=== PATIENT | male | born 1950 | race Caucasian/White ===

== ENCOUNTER → 2019-06-28 10:14 | Outpatient (BNVA) | payer MEDICARE, SELFPAY | PROVIDERS: Family Provider Family Medicine; PCP Family Medicine; Visit Provider Internal Medicine Rheumatology | DX: L40.50 Arthropathic psoriasis, unspecified (principal); L40.0 Psoriasis vulgaris; Z79.899 Other long term (current) drug therapy; Z79.52 Long term (current) use of systemic steroids | CPT/HCPCS: 99214 ==

== ENCOUNTER → 2019-08-13 13:04 | Outpatient (BNVA) | payer MEDICARE, SELFPAY | PROVIDERS: Family Provider Family Medicine; PCP Family Medicine; Visit Provider Internal Medicine Rheumatology | DX: L40.50 Arthropathic psoriasis, unspecified (principal); Z79.899 Other long term (current) drug therapy | CPT/HCPCS: 36415; 80076; 82565; 85025; 85651; 86140 ==

== ENCOUNTER → 2019-08-13 13:16 | Outpatient (BNVA) | payer MEDICARE, SELFPAY | PROVIDERS: Family Provider Family Medicine; PCP Family Medicine; Visit Provider Internal Medicine Rheumatology | DX: L40.50 Arthropathic psoriasis, unspecified (principal); Z79.899 Other long term (current) drug therapy; D89.89 Other specified disorders involving the immune mechanism, not elsewhere classified | CPT/HCPCS: 85025 ==

== ENCOUNTER → 2019-10-17 14:12 | Outpatient (BNVA) | payer MEDICARE, SELFPAY | PROVIDERS: Family Provider Family Medicine; PCP Family Medicine; Visit Provider Internal Medicine Rheumatology | DX: L40.59 Other psoriatic arthropathy (principal); L40.0 Psoriasis vulgaris; Z79.899 Other long term (current) drug therapy; M05.9 Rheumatoid arthritis with rheumatoid factor, unspecified; Z98.890 Other specified postprocedural states; Z79.52 Long term (current) use of systemic steroids | CPT/HCPCS: 20610; 80500; 87070; 87075; 87205; 89050; 99214 ==

== ENCOUNTER 2019-10-18 08:52 | Outpatient (CLI) | payer MEDICARE, SELFPAY ==
--- NOTE | 2019-10-18 09:18 | XR_ITS ---
WS: [id number] HAND LEFT TECHNIQUE: 3 views of the left hand CLINICAL INFORMATION: Polyarticular psoriatic arthritis COMPARISON: None. FINDINGS: Osteopenia. Advanced degenerative arthritis involving the radiocarpal joint and proximal and distal c arpal row. Erosive changes involving the carpal bones. Sclerosis with flattening involving the scapho id. Normal metacarpal heads. Joint space narrowing second third and fourth DIP joints with a few claudette articular erosions and hypertrophic spurring. IMPRESSION: 1. Advanced degenerative arthritis involving the radiocarpal joint and carpal bones with erosive hiram nges. Sclerosis with flattening involving the scaphoid. 2. Joint space narrowing involving the second third and fourth DIP joints with small periarticular e rosions.
--- NOTE | 2019-10-18 09:18 | XR_ITS ---
WS: [id number] FOOT LEFT TECHNIQUE: 3 views of the left foot CLINICAL INFORMATION: Polyarticular psoriatic arthritis COMPARISON: None. FINDINGS: Mild osteopenia. Normal anatomic alignment. Mild DIP joint narrowing. No evidence of acute fracture or dislocation. Normal tarsal metatarsal alignment. Normal calcaneus. N ormal visualized talar dome. No significant erosive changes. XR/XR foot LT min 3V* [id number] IMPRESSION: No significant erosive changes.
--- NOTE | 2019-10-18 09:18 | XR_ITS ---
WS: [id number] FOOT RIGHT TECHNIQUE: 3 views of the right foot CLINICAL INFORMATION: Polyarticular psoriatic arthritis: COMPARISON: None. FINDINGS: Normal anatomic alignment. No acute fractures. DIP joint narrowing. No significant erosive changes.Normal tarsal metatarsal alignment. Normal calcan eus. Normal visualized talar dome. XR/XR foot RT min 3V* [id number] IMPRESSION: No significant erosive changes.
--- NOTE | 2019-10-18 09:18 | XR_ITS ---
WS: [id number] HAND RIGHT TECHNIQUE: 3 views of the right hand CLINICAL INFORMATION: Polyarticular psoriatic arthritis COMPARISON: None. FINDINGS: Advanced degenerative narrowing involving the radiocarpal joint with sclerosis involving the proximal pole of the scaphoid similar to the left wrist. Nonerosive changes involving the proximal and distal carpal row. Joint space narrowing worse involving the third fourth and fifth DIP joints. A few tiny periarticular erosions. Joint space narrowing involving the second third MCP joints. Small periarticu lar erosions second and third metatarsal heads. XR/XR hand RT min 3V* [id number] IMPRESSION: 1. Advanced degenerative narrowing involving the radiocarpal joint with sclero sis in the proximal pole scaphoid. 2. Erosive changes involving the proximal and distal carpal row. 3. Joint space narrowing with a few periarticular erosions worse involving the second and third MCP joints and third fourth and fifth DIP joints.
== END 2019-10-18 08:53 | disposition home or self-care (01) ==
PROVIDERS: Family Provider Family Medicine; PCP Family Medicine; Visit Provider Internal Medicine Rheumatology
DX: L40.59 Other psoriatic arthropathy (principal); M19.042 Primary osteoarthritis, left hand; M19.041 Primary osteoarthritis, right hand
CPT/HCPCS: 73130; 73630

== ENCOUNTER → 2019-10-21 09:21 | Outpatient (BNVA) | payer MEDICARE, SELFPAY | PROVIDERS: Family Provider Family Medicine; PCP Family Medicine; Visit Provider Internal Medicine Rheumatology | DX: Z79.899 Other long term (current) drug therapy (principal) | CPT/HCPCS: 36415; 80076; 82565; 84550; 85025; 85651; 86140; 86431 ==

== ENCOUNTER 2019-11-04 11:18 | Outpatient (CLI) | payer MEDICARE, SELFPAY ==
--- NOTE | 2019-11-04 11:28 | XR_ITS ---
WS: [id number] LEFT KNEE: 3 VIEW(S) TECHNIQUE: AP, oblique(s) and lateral. HISTORY: inflammatory arthritis COMPARISON: None available. Prior LEFT knee arthroplasty. No fractures or dislocation. No lucency around the hardware. No joint space narrowing or osteophytes. No joint effusion. No soft tissue abnormality. XR/XR knee LT 3V* [id number] IMPRESSION: Prior LEFT knee arthroplasty with no complications.
--- NOTE | 2019-11-04 11:28 | XR_ITS ---
WS: [id number] RIGHT KNEE: 3 VIEW(S) TECHNIQUE: AP, oblique(s) and lateral. HISTORY: inflammatory arthritis COMPARISON: None available. No fracture or dislocation. Mild tricompartment osteoarthritis. Small osteophytes along the joint lines. No joint effusion. No soft tissue abnormality. XR/XR knee RT 3V* [id number] IMPRESSION: Mild tricompartment osteoarthritis.
== END 2019-11-04 11:19 | disposition home or self-care (01) ==
LOC: RADWPI 11:25
PROVIDERS: Family Provider Family Medicine; PCP Family Medicine; Visit Provider Internal Medicine Rheumatology
DX: M17.11 Unilateral primary osteoarthritis, right knee; Z96.652 Presence of left artificial knee joint
CPT/HCPCS: 73562

== ENCOUNTER 2019-12-05 13:30 | Outpatient (CLI) | payer MEDICARE, SELFPAY ==
--- NOTE | 2019-12-05 13:42 | MR_ITS ---
WS: [id number] MRI right knee with and without contrast. HISTORY: Inflammatory arthritis. Multiplanar, multisequence imaging is performed of the RIGHT knee. COMPARISON: 11/04/2019 radiographs. Moderate-sized joint effusion. There is mild enhancement involving the synovium of the knee. There is a well-circumscribed 15 mm calcific or osseous density in the anterior knee joint also seen on the r adiographs. Small amount of marrow edema with enhancement in the lateral tibial plateau. Moderate-sized Salazar's cyst. Pritchett of the Salazar's cyst also enhance. ACL and PCL are intact. Medial collateral ligament is normal. The lateral posterior corner structures are being displaced from the joint line by an extruded disc and osteophytes. Partially torn popliteu s tendon. There is additional marrow edema in the lateral tibial plateau. Abnormal signal in the posterior horn of the lateral meniscus extends to the superior and inferior ar ticular surfaces. There is an additional horizontal tear in the posterior horn medial meniscus. Dista l quadriceps tendon and patellar tendons are negative. Mild narrowing of the medial and lateral compartments of the knee. Loss of cartilage most significant laterally. MR/MR knee RT wo/w con [id number] IMPRESSION: 1. Moderate joint effusion with enhancing synovium. May be inflammatory or pos tinfectious. 2. Moderate-sized Salazar's cyst with enhancing pritchett. Infectious or inflammator y. 3. Loose body measuring 15 mm in the anterior knee joint. 4. Complex tear posterior horn lateral meniscus and horizontal tear posterior horn medial meniscus. 5. Partially torn popliteus tendon. 6. Marrow edema lateral tibial plateau with moderate medial and lateral compar tment internal derangement with loss of cartilage.
== END 2019-12-05 13:31 | disposition home or self-care (01) ==
LOC: RADWPI 13:33
PROVIDERS: Family Provider Family Medicine; PCP Family Medicine; Visit Provider Internal Medicine Rheumatology
DX: M25.461 Effusion, right knee (principal); M71.21 Synovial cyst of popliteal space [Baker], right knee; S83.206A Unspecified tear of unspecified meniscus, current injury, right knee, initial encounter; S86.811A Strain of other muscle(s) and tendon(s) at lower leg level, right leg, initial encounter; X58.XXXA Exposure to other specified factors, initial encounter
CPT/HCPCS: 73723; A9579

== ENCOUNTER → 2019-12-17 15:43 | Outpatient (BNVA) | payer MEDICARE, SELFPAY | PROVIDERS: Family Provider Family Medicine; PCP Family Medicine; Referring Provider Internal Medicine Rheumatology; Visit Provider Orthopaedic Surgery | DX: M17.11 Unilateral primary osteoarthritis, right knee (principal) | CPT/HCPCS: 73560 ==

== ENCOUNTER → 2020-01-14 08:29 | Outpatient (BNVA) | payer MEDICARE, SELFPAY | PROVIDERS: Family Provider Family Medicine; PCP Family Medicine; Visit Provider Internal Medicine Rheumatology | DX: Z79.899 Other long term (current) drug therapy (principal) | CPT/HCPCS: 36415; 80076; 82565; 85025; 85651; 86140 ==

== ENCOUNTER → 2020-01-21 08:46 | Outpatient (BNVA) | payer MEDICARE, SELFPAY | PROVIDERS: Family Provider Family Medicine; PCP Family Medicine; Visit Provider Internal Medicine Rheumatology | DX: L40.59 Other psoriatic arthropathy (principal); L40.0 Psoriasis vulgaris; Z79.899 Other long term (current) drug therapy; M23.209 Derangement of unspecified meniscus due to old tear or injury, unspecified knee | CPT/HCPCS: 99214 ==

== ENCOUNTER → 2020-02-24 09:13 | Outpatient (BNVA) | payer MEDICARE, SELFPAY | PROVIDERS: Family Provider Family Medicine; PCP Family Medicine; Visit Provider Internal Medicine Rheumatology | DX: Z79.899 Other long term (current) drug therapy (principal) | CPT/HCPCS: 36415; 80076; 82565; 85025; 85651; 86140 ==

== ENCOUNTER → 2020-05-18 09:29 | Outpatient (BNVA) | payer MEDICARE, SELFPAY | PROVIDERS: Family Provider Family Medicine; PCP Family Medicine; Visit Provider Internal Medicine Rheumatology | DX: L40.50 Arthropathic psoriasis, unspecified (principal); L40.4 Guttate psoriasis; Z79.899 Other long term (current) drug therapy; M17.10 Unilateral primary osteoarthritis, unspecified knee; M23.209 Derangement of unspecified meniscus due to old tear or injury, unspecified knee; Z87.891 Personal history of nicotine dependence | CPT/HCPCS: 36415; 80076; 82565; 85025; 85651; 86140; 99214 ==

== ENCOUNTER → 2020-10-01 09:45 | Outpatient (BNVA) | payer MEDICARE, SELFPAY | PROVIDERS: Family Provider Family Medicine; PCP Family Medicine; Visit Provider Internal Medicine Rheumatology | DX: L40.50 Arthropathic psoriasis, unspecified (principal); L40.0 Psoriasis vulgaris; Z79.899 Other long term (current) drug therapy; M17.11 Unilateral primary osteoarthritis, right knee; Z96.652 Presence of left artificial knee joint; Z87.891 Personal history of nicotine dependence | CPT/HCPCS: 99214 ==

== ENCOUNTER → 2021-01-18 12:50 | Outpatient (BNVA) | payer MEDICARE, SELFPAY | PROVIDERS: Family Provider Family Medicine; PCP Family Medicine; Visit Provider Internal Medicine Rheumatology | DX: L40.50 Arthropathic psoriasis, unspecified (principal); L40.0 Psoriasis vulgaris; Z79.899 Other long term (current) drug therapy; M19.90 Unspecified osteoarthritis, unspecified site; Z71.89 Other specified counseling; M17.11 Unilateral primary osteoarthritis, right knee; Z87.891 Personal history of nicotine dependence | CPT/HCPCS: 99214 ==

== ENCOUNTER → 2021-05-17 15:01 | Outpatient (BNVA) | payer MEDICARE, SELFPAY | PROVIDERS: Family Provider Family Medicine; PCP Family Medicine; Visit Provider Internal Medicine Rheumatology | DX: L40.50 Arthropathic psoriasis, unspecified (principal); L40.0 Psoriasis vulgaris; Z79.899 Other long term (current) drug therapy; M17.11 Unilateral primary osteoarthritis, right knee; Z96.652 Presence of left artificial knee joint; Z71.89 Other specified counseling; Z87.891 Personal history of nicotine dependence | CPT/HCPCS: 99214 ==

== ENCOUNTER → 2021-08-19 13:53 | Outpatient (BNVA) | payer MEDICARE, SELFPAY | PROVIDERS: PCP Family Medicine; Visit Provider Internal Medicine Rheumatology | DX: L40.50 Arthropathic psoriasis, unspecified (principal); L40.4 Guttate psoriasis; Z79.899 Other long term (current) drug therapy; M17.11 Unilateral primary osteoarthritis, right knee; Z71.89 Other specified counseling; Z96.652 Presence of left artificial knee joint; Z87.891 Personal history of nicotine dependence | CPT/HCPCS: 99214 ==

== ENCOUNTER 2021-12-27 08:11 | Inpatient (IN) | payer MEDICARE, SELFPAY ==
[2021-12-27] VITALS (66 sets, daily range): BP systolic 99–156; BP diastolic 72–109; PULSE 64–105; RESP 9–28; TEMP 36.7–36.9; O2SAT 86–94; BMI 27.9
--- NOTE | 2021-12-27 08:12 | ECG_ITS ---
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 Measurements Intervals [place] Rate: 91 P: 40 FL: 163 QRS: 44 QRSD: 101 T: 83 QT: 370 QTc: 455 Interpretive Statements SINUS RHYTHM NONSPECIFIC ST & T-WAVE ABNORMALITY No previous ECG available for comparison Electronically Signed On 12-27-2021 20:49:20 CDT by Blaze Thurman M.D. [id number]
--- NOTE | 2021-12-27 08:12 | XR_ITS ---
WS: [id number] PORTABLE CHEST HISTORY: Chest pain COMPARISON: None available. Mild pulmonary hyperexpansion. The RIGHT lateral lung was not included on this examination. No pleura l effusion or pneumothorax. Cardiac size: Normal. Mediastinum/Aorta: Mild ectasia thoracic aorta. Prior RIGHT humeral head replacement. XR/XR chest 1V portable [id number] IMPRESSION: Chronic emphysema. No pneumonia.
[2021-12-27] MEDS: aspirin 81 mg Chew Tablet 324 MG PO (08:37)
[2021-12-27 08:53] LABS: Basophils # 0.1 10^3/uL (0.0-0.1); Basophils % 1.3 %; Eosinophils # 0.1 10^3/uL (0.0-0.8); Hematocrit 46.1 % (42.0-52.0); Hemoglobin 15.3 g/dL (11.7-16.6); Lymphocytes # 1.5 10^3/uL (0.8-4.8); Lymphocytes % 32.1 %; Mean Corpuscular HGB Conc 33.2 g/dL (30.0-36.0); Mean Corpuscular Hemoglobin 30.1 pg (28.0-34.0); Mean Corpuscular Volume 90.6 fl (80-94); Mean Platelet Volume 10.4 fL (7.4-10.4); Monocytes # 0.4 10^3/uL (0.2-0.9); Monocytes % 9.3 %; Neutrophils # 2.57 10^3/uL (1.8-7.7); Neutrophils % 54.3 %; Nucleated Red Blood Cells % 0 %; Platelet Count 183 10^3/cmm (130-400); Red Blood Count 5.09 10^6/uL (4.1-5.3); Red Cell Distribution Width 12.6 % (12.1-15.1); White Blood Count 4.7 10^3/uL (4.0-10.0)
[2021-12-27 09:21] LABS: Alanine Aminotransferase 16 U/L (0-41); Albumin Level 4.7 g/dL (3.5-5.2); Alkaline Phosphatase 110 IU/L (40-130); Aspartate Amino Transferase 19 U/L (0-40); Blood Urea Nitrogen 17 mg/dL (8-23); Calcium 9.7 mg/dL (8.5-10.5); Carbon Dioxide 25 mmol/L (22-29); Chloride 104 mmol/L (98-107); Globulin 2.4 g/dL (1.3-4.6); Glucose 101 mg/dL (65-115); Osmolality Calculated 292 mOsm/kg (285-295); Sodium 140 mmol/L (136-145); Total Bilirubin 0.5 mg/dL (0.15-1.2); Total Protein 7.1 g/dL (6.6-8.7)
[2021-12-27 09:28] LABS: Troponin(5th) Baseline 119 ng/L (0-15)
--- NOTE | 2021-12-27 09:52 | P.HP_ITS ---
Providers/Chief Complaint Admitting Physician: Peyton Engle MD Primary Care Provider: Trent Viveros MD Chief Complaint: chest pain History of Present Illness Trenton Leung is a 71 year old male who presented to the emergency room today with chief complaint of chest pain. His symptoms actually began several weeks ago. He first told his about having some chest discomfort on December 18. He admits that it had been happening off and on for several days prior to that. The pain is located in the left side of his chest without radiation. He describes it as like the muscle hurting. It had been coming and going over the last few weeks lasting different lengths of time with no clear association with activity, time of day, relationship to meals. He says most the time when it comes on he will walk around a little bit, sometimes belch or stretch and it may go away. Denies any shortness of breath, diaphoresis, dizziness, palpitations, nausea or vomiting with the pain. He has had a few more severe episodes as well. Last Monday he had gone fishing and when he got home he just could not get comfortable . He had had a honey bun prior to this and thought it was just severe indigestion. He wandered around all night. Also notable that he went to walk on the treadmill last week and just had no energy to be able to do it. This is after having walked a 5K on December 05 without any difficulties. The pain recurred over the weekend and was as severe as an 8 out of 10. He did not try anything at home other than resting to alleviate the pain. His insisted that he be seen by somebody today. He went over to [facility] told them he was having chest pain and they sent him to the emergency room for further evaluation. On arrival here initial blood pressure was 154/109, pulse 84 and oxygen saturation 93% he was afebrile. Twelve-lead EKG showed ST depression and 2 3 aVF as well as V4 to V6. No prior EKGs available for comparison. Initial troponin was 119 also with no prior for comparison. Patient himself has no known history of coronary artery disease. He does have hyperlipidemia for which he is on statin therapy. Does not carry a diagnosis of hypertension despite elevated blood pressures on arrival. He had evaluation in August of this year prior to planned shoulder surgery at which time his blood pressures were normal. He follows with Dr. Viveros on an outpatient basis. He has a remote smoker. He does have a history of psoriatic arthritis on several disease modifying agents as noted below. His father had real bad high cholesterol and his mother had what sounds like CHF with fluid around her heart and a heart attack later in life. He is currently not experiencing any chest pain or other discomfort. He received nitroglycerin paste, treatment dose Lovenox and aspirin therapy in the emergency room. He is being admitted to hospitalist service for further cardiac evaluation. Review of Systems Const: Reports: fatigue; Denies: fever(s), chills or body aches Eyes: Denies: change in vision ENMT: Denies: throat pain or nasal congestion Card: Reports: chest pain; Denies: palpitations, edema, lightheadedness, dyspnea on exertion or orthopnea Resp: Denies: dyspnea, productive cough, non-productive cough or pain on insp iration GI: Reports: heartburn (Feels like he is having increased hear tburn/indigestion lately); Denies: abdominal pain, nausea, vomiting, dysphagia, diarrhea, constipation, hematochezia or melena : Denies: difficulty urinating or hematuria Musc: Denies: joint pain (Joints doing well, last prednisone 2 to 3 weeks ago) Skin/Breast: Reports: other (Psoriasis doing well, only a few lesions active presently) Neuro: Denies: headache(s), numbness in extremities, weakness in extremities or difficulty walking Hardeep/Lymph: Denies: easy bruising or easy bleeding Medications/Allergies Home Medications Medication Instructions Recorded Confirmed Last Taken Type pravastatin 40 mg tablet 40 mg PO QDAY 06/28/19 08/19/21 Unknown History omeprazole 40 mg capsule,delayed 40 mg PO DAILY #30 cap 03/24/21 08/19/21 Unknown Rx release apremilast 30 mg tablet (Otezla) 30 mg PO DAILY #30 tab 05/17/21 08/19/21 Unknown Rx ascorbate calcium (vitamin C) 500 500 mg PO DAILY 05/17/21 08/19/21 Unknown History mg tablet aspirin 81 mg tablet,delayed 81 mg PO DAILY 05/17/21 08/19/21 Unknown History release (Adult Aspirin Regimen) secukinumab 150 mg/mL subcutaneous 150 mg SUBCUT .[id number] #2 ml 12/23/21 Unknown Rx pen injector (Cosentyx Pen) omega-3 fatty acids-fish oil 684 1 cap PO DAILY 12/27/21 12/27/21 12/26/21 History mg-1,200 mg capsule,delayed release sulfasalazine 500 mg tablet 500 mg PO BID 12/27/21 12/27/21 12/26/21 History Allergies Allergy/AdvReac Type Severity Reaction Status Date / Time hydrocodone Allergy ADR-Headach Verified 12/27/21 10:26 e leflunomide AdvReac Severe severe Verified 12/27/21 10:26 diarrhea PFSH Acute PFSH: Medical History (Updated 12/27/21 @ 11:12 by Peyton Engle MD) Chronic meniscal tear of knee Right COVID-19 (06/2021) Guttate psoriasis High risk medication use Hyperlipidemia OA (osteoarthritis) of knee Polyarticular psoriatic arthritis Renal mass Patient reported history of kidney mass, previously followed by nephrology, told no change last check and did not need further nephrology follow-up Status post administration of all doses of COVID-19 vaccine series plus boosters Surgical History (Updated 12/27/21 @ 11:12 by Peyton Engle MD) H/O shoulder replacement 08/09/2021 Right History of appendectomy History of bilateral carpal tunnel release History of inguinal hernia repair Right History of knee replacement 06/06/2017 Left History of vasectomy Status post aspiration of joint (10/2019) Right knee Family History (Updated 12/27/21 @ 11:13 by Peyton Engle MD) Father Hyperlipidemia real bad Mother Heart failure fluid around heart , had heart attack Other Stroke Denies family history of Rheumatoid arthritis Diabetes Systemic lupus erythematosus (SLE) in adult Hypertension Social History (Updated 12/27/21 @ 10:52 by Peyton Engle MD) Smoking and tobacco status: former smoker Quit status (tobacco): has quit using tobacco Former quit date comment: Quit smoking/chewing tobacco ~2009 Alcohol intake: never Substance/Drug Use: never Lives independently: Yes Household members: spouse Marital status: Current occupational status: retired and disabled Vitals/I&O/Wt Last Vital Signs Temp 98.4 F 12/27/21 08:19 Pulse 84 12/27/21 08:19 Resp 15 12/27/21 08:19 BP 154/109 12/27/21 08:19 Pulse Ox 93 12/27/21 08:19 Weight last 48 hrs Weight 88.451 kg Physical Exam Narrative: Constitutional: Awake and alert, cooperative, able to provide history HEENT: Normocephalic, atraumatic, pupils are equal reactive, extraocular movements are intact, moist mucous membranes Neck: Supple Respiratory: Clear to auscultation bilaterally without any rales rhonchi or wheezes noted, no splinting, equal breath sounds bilaterally Cardiovascular: Regular rate and rhythm, no murmurs gallops or rubs, no JVD Abdomen: Soft, nontender, positive bowel sounds Extremities: No pitting edema, no cyanosis, no calf tenderness Skin: Small psoriatic lesion to left lower extremity noted laterally approximately 1 cm in diameter, no bruising or sores otherwise identified on visible skin Neuro: Speech clear, face symmetric, moves all extremities Psych: Normal affect Data : 12/27/21 08:25 12/27/21 08:25 Other Labs: Radiology Impressions Chest X-Ray 12/27/21 08:12 IMPRESSION: Chronic emphysema. No pneumonia. Laboratory Results WBC 4.7 10^3/uL (4.0-10.0) 12/27/21 08:25 RBC 5.09 10^6/uL (4.1-5.3) 12/27/21 08:25 Hgb 15.3 g/dL (11.7-16.6) 12/27/21 08:25 Hct 46.1 % (42.0-52.0) 12/27/21 08:25 MCV 90.6 fl (80-94) 12/27/21 08:25 MCH 30.1 pg (28.0-34.0) 12/27/21 08:25 MCHC 33.2 g/dL (30.0-36.0) 12/27/21 08:25 RDW 12.6 % (12.1-15.1) 12/27/21 08:25 Plt Count 183 10^3/cmm (130-400) 12/27/21 08:25 MPV 10.4 fL (7.4-10.4) 12/27/21 08:25 Neut % (Auto) 54.3 % 12/27/21 08:25 Lymph % (Auto) 32.1 % 12/27/21 08:25 Lewis % (Auto) 9.3 % 12/27/21 08:25 Eos % (Auto) 3.0 % 12/27/21 08:25 Baso % (Auto) 1.3 % 12/27/21 08:25 Neut # (Auto) 2.57 10^3/uL (1.8-7.7) 12/27/21 08:25 Lymph # (Auto) 1.5 10^3/uL (0.8-4.8) 12/27/21 08:25 Lewis # (Auto) 0.4 10^3/uL (0.2-0.9) 12/27/21 08:25 Eos # (Auto) 0.1 10^3/uL (0.0-0.8) 12/27/21 08:25 Baso # (Auto) 0.1 10^3/uL (0.0-0.1) 12/27/21 08:25 Nucleated RBC % (auto) 0 % 12/27/21 08:25 Nucleated RBCs # 0.0 /100WBC 12/27/21 08:25 Sodium 140 mmol/L (136-145) 12/27/21 08:25 Potassium 4.0 mmol/L (3.5-5.1) 12/27/21 08:25 Chloride 104 mmol/L (98-107) 12/27/21 08:25 Carbon Dioxide 25 mmol/L (22-29) 12/27/21 08:25 Anion Gap 15.0 (5-19) 12/27/21 08:25 BUN 17 mg/dL (8-23) 12/27/21 08:25 Creatinine 1.2 mg/dL (0.7-1.2) 12/27/21 08:25 GFR Calculation Not Reportable 12/27/21 08:25 Glucose 101 mg/dL (65-115) 12/27/21 08:25 Calculated Osmolality 292 mOsm/kg (285-295) 12/27/21 08:25 Calcium 9.7 mg/dL (8.5-10.5) 12/27/21 08:25 Total Bilirubin 0.5 mg/dL (0.15-1.2) 12/27/21 08:25 AST 19 U/L (0-40) 12/27/21 08:25 ALT 16 U/L (0-41) 12/27/21 08:25 Alkaline Phosphatase 110 IU/L (40-130) 12/27/21 08:25 Troponin T Baseline 119 ng/L (0-15) H* 12/27/21 08:25 Total Protein 7.1 g/dL (6.6-8.7) 12/27/21 08:25 Albumin 4.7 g/dL (3.5-5.2) 12/27/21 08:25 Globulin 2.4 g/dL (1.3-4.6) 12/27/21 08:25 A&P Assessment and plan (1) NSTEMI (non-ST elevated myocardial infarction): In a patient with what sounds like unstable angina progressing over the last couple of weeks. Initial EKG with ST depression in several leads and baseline troponin of 119. No prior history of coronary artery disease but has known hyperlipidemia on chronic statin therapy. Patient's mother had heart failure and probably a heart attack later in life. Mr. Leung is a former smoker with no nicotine in about 10 years. Serial cardiac enzymes Echocardiogram Further cardiac testing pending results of above Continue aspirin, Lovenox, nitroglycerin already initiated Continue statin therapy though will increase to high-dose Check lipid panel Status: Acute (2) Elevated blood-pressure reading, without diagnosis of hypertension: Could be secondary to #1 or contributing factor. Could also be situational. No known diagnosis or treatment at home. Earlier this year had evaluation prior to shoulder surgery and blood pressures then were within normal range. On Nitropaste presently with improved blood pressures Will need to monitor during hospital stay and determine if outpatient treatment warranted depending on clinical course and findings Status: Acute (3) Hyperlipidemia: Specific type unknown, positive family history with father having significant hyperlipidemia, on chronic statin therapy Chronically on pravastatin 40 mg High-dose atorvastatin currently Check lipid panel LFTs are within normal limits If dosing of statin changed, will need to recheck LFTs in a few weeks particularly in light of chronic treatment for psoriasis Status: Chronic (4) Polyarticular psoriatic arthritis: Followed by Dr. Leonardo. On several disease modifying agents. Currently without acute synovitis and not on any long-term pain medications other than prednisone as needed for flares. Monitor for flares and need to provide steroids Status: Chronic (5) High risk medication use: Chronically on Otezla, Cosentyx and sulfasalazine for psoriatic arthritis Chronically on prednisone as needed for flareups with risk for acute adrenal insufficiency Continue Otezla (use home medication) and sulfasalazine currently Cosentyx is due 12/28/2021; is notifying Dr. Leonardo's clinic of admission as he was scheduled for appointment 12/28 prior to Cosentyx being administered. We will hold until follow-up with rheumatology or other guidance provided Monitor for adrenal insufficiency as appropriate Status: Chronic Plan Inpatient admission Cardiac care as noted above Anticipate cardiology consultation pending results of second set of troponins plus or minus echocardiogram Increase PPI to twice daily presently secondary to full anticoagulation Treatment dose Lovenox currently provides VTE prophylaxis Intermittently with low normal oxygen levels in the emergency room, monitor for need to evaluate further Supportive care otherwise Findings, concerns and plans were discussed with patient and his and both were given an opportunity to ask questions Currently anticipate discharge home possibly with need for cardiac follow-up depending on clinical course Full code Attestations Medical Necessity Statement*: Currently anticipate a stay greater than 2 midnights in a gentleman presenting with chest pain found to have elevated troponin and ST segment depression on EKG. Symptoms of angina have been progressing over the last few weeks. Plans are as noted above. Coding Level of Care Code Acute Hotel Registration Clerk for g Fwd Diagnoses NSTEMI (non-ST elevated myocardial infarction) I21.4 Hyperlipidemia E78.5 Polyarticular psoriatic arthritis L40.59 High risk medication use Z79.899 Elevated blood-pressure reading, without diagnosis of hypertension R03.0
[2021-12-27] MEDS: enoxaparin 100 mg/mL Syringe 90 MG SUBCUT ×2 (09:53→21:03)
[2021-12-27] MEDS: nitroglycerin 1 gm/inch oint Pkt 1 INCH TOPICAL ×3 (09:53→21:04)
--- NOTE | 2021-12-27 10:12 | ECG_ITS ---
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 Measurements Intervals [place] Rate: 75 P: 43 [place]: 176 QRS: 39 QRSD: 100 T: 69 QT: 394 QTc: 441 Interpretive Statements SINUS RHYTHM MODERATE ST DEPRESSION [0.05+ mV ST DEPRESSION] Compared to ECG 12/27/2021 08:17:26 ST (T wave) deviation now present T-wave abnormality no longer present Electronically Signed On 12-27-2021 21:04:14 CDT by Blaze Thurman M.D. [id number]
--- NOTE | 2021-12-27 10:33 | USCV_ITS ---
Trenton Leung Age: 71 Gender: M : 1950 Exam Date: 12/27/2021 11:42 Ordering Phys: Peyton Engle MD Technologist: Gregory Thomson [place] [facility] [place]: Chest pain BP: 143 / 99 HR: 89 Rhythm: Sinus Technical Quality: Suboptimal MEASUREMENTS (Male / Female) Normal Values 2D ECHO LVOT Diameter 2.1 cm LA Diameter 3.3 cm IVC Diameter 1.3 cm M-MODE LV Diastolic Diameter MM 4.3 cm 4.2 - 5.9 / 3.9 - 5.3 cm LV Systolic Diameter MM 1.7 cm LV Ejection Fraction MM Teich 89.2 % IVS Diastolic Thickness MM 1.1 cm 0.6 - 1.0 / 0.6 - 0.9 cm IVS Systolic Thickness MM 2.0 cm LVPW Diastolic Thickness MM 1.1 cm 0.6 - 1.0 / 0.6 - 0.9 cm LVPW Systolic Thickness MM 2.7 cm RV Diastolic Diameter MM 2.2 cm Aortic Annulus Diameter 3.4 cm LA Ao Ratio MM 1.1 MV E Point Septal Separation 0.7 cm DOPPLER AV Peak Velocity 95.0 cm/s LVOT Peak Velocity 86.0 cm/s AV Area Cont Eq vti 3.5 cm squared AV Area Cont Eq pk 3.1 cm squared MV Area PHT 5.0 cm squared Mitral E to A Ratio 0.6 MV E' Velocity 28.0 cm/s Mitral E to MV E' Ratio 6.7 Mitral E to LV E' Lateral Ratio 7.1 Mitral E to LV E' Septal Ratio 6.3 TR Peak Velocity 143.3 cm/s TR Peak Gradient 8.2 mmHg TV Peak E Velocity 104.0 cm/s Right Atrial Pressure 3.0 mmHg Pulmonary Artery Systolic Pressu 11.2 mmHg PV Peak Velocity 111.0 cm/s FINDINGS Left Ventricle Normal left ventricular cavity size and systolic function. Left ventricular ejection fraction is estimated at 55 %. There is mild hypokinesis of basal to mid inferolateral and anterolateral miller. Grade I diastolic dysfunction (abnormal relaxation filling pattern), normal to mildly elevated filling pressures. Right Ventricle Normal right ventricular size and systolic function. Right Atrium Normal right atrial size. Left Atrium Left atrium not well visualized. Normal left atrial size. Mitral Valve Structurally normal mitral valve. No mitral valve stenosis. Trace mitral valve regurgitation. Aortic Valve Aortic valve not well visualized. No aortic valve stenosis. No aortic valve regurgitation. Tricuspid Valve Structurally normal tricuspid valve. Trace tricuspid valve regurgitation. Pulmonic Valve Pulmonic valve not well visualized. No pulmonary valve stenosis. Pericardium No pericardial effusion. Aorta Aorta not well visualized. IVC Normal-sized inferior vena cava. CONCLUSIONS 1. This is a technically difficult study with off axis parasternal images. 2. Normal left ventricular cavity size and systolic function. Left ventricular ejection fraction is estimated at 55 %. There is mild hypokinesis of basal to mid inferolateral and anterolateral miller. Grade I diastolic dysfunction (abnormal relaxation filling pattern), normal to mildly elevated filling pressures. 3. No prior similar studies to compare. Kourtney No MD (Electronically Signed) Final Date: 27 December 2021 14:53 S
[2021-12-27 11:19] LABS: Troponin 5 2HR 125.7 ng/L (0-15); Troponin 5 2HR Delta 6.7 ABS# (0-10)
--- NOTE | 2021-12-27 11:53 | W.ED.CHESTPA ---
HPI - Chest Pain General: Chief Complaint: Chest Pain Stated Complaint: chest pain Time Seen by Provider: 12/27/21 08:12 Source: patient Mode of arrival: ambulatory History of Present Illness: 71-year-old male presents to the emergency room with complaints of chest pain has had intermittently for the last week. He states he has been having a lot of eructations that does seem to relieve the discomfort he has been getting short of breath with it but no diaphoresis no radiation of the pain is really noticed anything that exacerbates or relieves it. When he first arrived he was having some mild chest discomfort that resolved. Patient is not diabetic he has no known history of coronary artery disease MD complaint: chest pain Onset (ago): week(s) (1) Timing of current episode: episodic Prior episodes: Yes Onset: during rest and during exertion Pain location: left chest Pain radiation: none Severity: mild Quality: tightness, aching and heaviness Relieving factors: nothing Exacerbating factors: nothing Associated symptoms: Deny abdominal pain, diaphoresis, dyspnea, fever(s), leg edema, nausea, palpitations, sense of impending doom, syncope or vomiting Treatment prior to arrival: none Review of Systems Const: Denies: fever(s) or diaphoresis ENMT: Denies: throat pain, ear or mastoid pain, nasal discharge or nasal congestion Card: Reports: chest pain; Denies: palpitations or syncope Resp: Denies: dyspnea GI: Denies: abdominal pain, nausea or vomiting : Denies: flank pain, dysuria, urinary frequency or urinary urgency Skin/Breast: Denies: rash or pruritus [facility] ED PFSH: Medical History Chronic meniscal tear of knee Right COVID-19 (06/2021) Guttate psoriasis High risk medication use Hyperlipidemia OA (osteoarthritis) of knee Polyarticular psoriatic arthritis Renal mass Patient reported history of kidney mass, previously followed by nephrology, told no change last check and did not need further nephrology follow-up Status post administration of all doses of COVID-19 vaccine series plus boosters Surgical History H/O shoulder replacement 08/09/2021 Right History of appendectomy History of bilateral carpal tunnel release History of inguinal hernia repair Right History of knee replacement 06/06/2017 Left History of vasectomy Status post aspiration of joint (10/2019) Right knee Family History Father Hyperlipidemia real bad Mother Heart failure fluid around heart , had heart attack Other Stroke Denies family history of Rheumatoid arthritis Diabetes Systemic lupus erythematosus (SLE) in adult Hypertension Social History Smoking and tobacco status: former smoker Quit status (tobacco): has quit using tobacco Former quit date comment: Quit smoking/chewing tobacco ~2009 Alcohol intake: never Substance/Drug Use: never Lives independently: Yes Household members: spouse Marital status: Current occupational status: retired and disabled Physical Exam Const: COMMON NORMALS: no acute distress GENERAL APPEARANCE: cooperative and comfortable ORIENTATION/CONSCIOUSNESS: Yes awake, Yes oriented to person, Yes oriented to place and Yes oriented to time HENMT: COMMON NORMALS: normocephalic, atraumatic and hearing grossly normal bilaterally HEAD & SCALP: normocephalic and atraumatic Neck/C-Spine: COMMON NORMALS: no JVD Resp: COMMON NORMALS: normal respiratory effort, No retractions, No use of accessory muscles and clear to auscultation bilaterally AUSCULTATION: clear to auscultation bilaterally Cardio: COMMON NORMALS: no JVD, regular rate, regular rhythm and No murmurs present (Cardio) RATE: regular rate RHYTHM: regular rhythm GI: COMMON NORMALS: Soft to palpation and No hepatosplenomegaly present AUSCULTATION: Yes normoactive bowel sounds PALPATION: Yes Soft to palpation, No Tenderness to palpation present (GI), No Guarding due to palpation present (GI) and Yes No hepatosplenomegaly present Extremity: COMMON NORMALS: normal to inspection, capillary refill normal, no clubbing, cyanosis or edema, no calf tenderness and no pedal edema Neuro: SENSORIUM/ORIENTATION: Yes oriented to person, Yes oriented to place and Yes oriented to time Skin: COMMON NORMALS: no rashes or lesions noted GENERAL SKIN EXAM: no rashes or lesions noted Course Vital Signs: Vital signs: Vital Signs Temperature 98.4 F 12/27/21 08:19 Pulse Rate 79 12/27/21 10:30 Respiratory Rate 15 12/27/21 10:30 Blood Pressure 153/94 12/27/21 10:30 Pulse Oximetry 92 12/27/21 10:30 MDM - Chest Pain Medical Decision Making Mild ST depression on his EKG nothing that shows elevation his symptoms have resolved for troponin came back at 119 and second 1 increased to 126. He was given topical nitro and Lovenox we will admit the patient of discussed with Dr. Engle orders are written Medical Records I reviewed the patient's medical records. Lab Data : 12/27/21 08:25 12/27/21 08:25 Radiology Impressions Chest X-Ray 12/27/21 08:12 IMPRESSION: Chronic emphysema. No pneumonia. Laboratory Results WBC 4.7 10^3/uL (4.0-10.0) 12/27/21 08:25 RBC 5.09 10^6/uL (4.1-5.3) 12/27/21 08:25 Hgb 15.3 g/dL (11.7-16.6) 12/27/21 08:25 Hct 46.1 % (42.0-52.0) 12/27/21 08:25 MCV 90.6 fl (80-94) 12/27/21 08:25 MCH 30.1 pg (28.0-34.0) 12/27/21 08:25 MCHC 33.2 g/dL (30.0-36.0) 12/27/21 08:25 RDW 12.6 % (12.1-15.1) 12/27/21 08:25 Plt Count 183 10^3/cmm (130-400) 12/27/21 08:25 MPV 10.4 fL (7.4-10.4) 12/27/21 08:25 Neut % (Auto) 54.3 % 12/27/21 08:25 Lymph % (Auto) 32.1 % 12/27/21 08:25 [place] % (Auto) 9.3 % 12/27/21 08:25 Eos % (Auto) 3.0 % 12/27/21 08:25 Baso % (Auto) 1.3 % 12/27/21 08:25 Neut # (Auto) 2.57 10^3/uL (1.8-7.7) 12/27/21 08:25 Lymph # (Auto) 1.5 10^3/uL (0.8-4.8) 12/27/21 08:25 [place] # (Auto) 0.4 10^3/uL (0.2-0.9) 12/27/21 08:25 Eos # (Auto) 0.1 10^3/uL (0.0-0.8) 12/27/21 08:25 Baso # (Auto) 0.1 10^3/uL (0.0-0.1) 12/27/21 08:25 Nucleated RBC % (auto) 0 % 12/27/21 08:25 Nucleated RBCs # 0.0 /100WBC 12/27/21 08:25 Sodium 140 mmol/L (136-145) 12/27/21 08:25 Potassium 4.0 mmol/L (3.5-5.1) 12/27/21 08:25 Chloride 104 mmol/L (98-107) 12/27/21 08:25 Carbon Dioxide 25 mmol/L (22-29) 12/27/21 08:25 Anion Gap 15.0 (5-19) 12/27/21 08:25 BUN 17 mg/dL (8-23) 12/27/21 08:25 Creatinine 1.2 mg/dL (0.7-1.2) 12/27/21 08:25 GFR Calculation Not Reportable 12/27/21 08:25 Glucose 101 mg/dL (65-115) 12/27/21 08:25 Calculated Osmolality 292 mOsm/kg (285-295) 12/27/21 08:25 Calcium 9.7 mg/dL (8.5-10.5) 12/27/21 08:25 Total Bilirubin 0.5 mg/dL (0.15-1.2) 12/27/21 08:25 AST 19 U/L (0-40) 12/27/21 08:25 ALT 16 U/L (0-41) 12/27/21 08:25 Alkaline Phosphatase 110 IU/L (40-130) 12/27/21 08:25 Troponin T Baseline 119 ng/L (0-15) H* 12/27/21 08:25 Troponin T 120 Minute 125.7 ng/L (0-15) H 12/27/21 10:00 Delta Troponin T 6.7 ABS# (0-10) 12/27/21 10:00 Total Protein 7.1 g/dL (6.6-8.7) 12/27/21 08:25 Albumin 4.7 g/dL (3.5-5.2) 12/27/21 08:25 Globulin 2.4 g/dL (1.3-4.6) 12/27/21 08:25 Discharge Plan Discharge Patient Disposition: Admitted As Inpatient Admit Provider: Peyton Engle Clinical Impression: Non-ST elevation OR (NSTEMI), Angina at rest Condition: Stable Coding Level of Care Code ED Operations Team Leader for Marguerite Calero
--- NOTE | 2021-12-27 12:06 | P.CONIM_ITS ---
Providers/Reason For Consult Consulting Physician/Specialty*: Dr. No, Cardiology Reason for Consult*: Chest pain Attending Physician: Peyton Engle MD Primary Care Provider: Trent Viveros MD History of Present Illness History of Present Illness Trenton Leung is a 71 year old male with PMHx of hyperlipidemia, psoriatic arthritis and is a former smoker and tobacco chewer (quit in 2009). He presented for evaluation of chest discomfort. He participated in [place] [employer] on 06 of December and did well. In the last 2 weeks, he has been having chest discomfort described as heart pal relieved with belching. He is already taking omeprazole and stopped drinking morning coffee for last 3 days to help with symptoms. He continues to have lower chest and left sided chest pain relieved with belching/stretching almost everyday. Last week on one occasion, he did have pressure like chest pain that was unable to tell how long it lasted. He went to see PCP today and was sent to the ER for further evaluation. EKG showed sinus bradycardia, Mild ST depression in II, III, aVF, V4-V6. ST depression improves slightly on subsequent EKG. Troponin T 119-->126 and 6 hr is still pending. He is currently CP free. Echo with normal LV function and lateral wall motion abnormality. Review of Systems General: Reports: 10 or more systems reviewed and unremarkable except in HPI and below Const: Denies: fever(s) or diaphoresis ENMT: Denies: throat pain, ear or mastoid pain, nasal discharge or nasal congestion Card: Reports: chest pain; Denies: palpitations or syncope Resp: Denies: dyspnea GI: Denies: abdominal pain, nausea or vomiting : Denies: flank pain, dysuria, urinary frequency or urinary urgency Musc: Reports: joint pain; Denies: extremity swelling Skin/Breast: Denies: rash or pruritus Neuro: Denies: weakness in extremities or dizziness Hardeep/Lymph: Denies: petechiae or purpura Medications/Allergies Home Medications Medication Instructions Recorded Confirmed Last Taken Type pravastatin 40 mg tablet 40 mg PO QDAY 06/28/19 12/27/21 12/26/21 History omeprazole 40 mg capsule,delayed 40 mg PO DAILY #30 cap 03/24/21 12/27/21 0 12/26/21 Rx release apremilast 30 mg tablet (Otezla) 30 mg PO DAILY #30 tab 05/17/21 12/27/21 12/26/21 Rx ascorbate calcium (vitamin C) 500 500 mg PO DAILY 05/17/21 12/27/21 12/26/21 History mg tablet aspirin 81 mg tablet,delayed 81 mg PO DAILY 05/17/21 12/27/21 12/26/21 History release (Adult Aspirin Regimen) secukinumab 150 mg/mL subcutaneous 150 mg SUBCUT .[id number] #2 ml 12/23/21 12/27/21 12/06/21 Rx pen injector (Cosentyx Pen) omega-3 fatty acids-fish oil 684 1 cap PO DAILY 12/27/21 12/27/21 12/26/21 History mg-1,200 mg capsule,delayed release sulfasalazine 500 mg tablet 500 mg PO BID 12/27/21 12/27/21 12/26/21 History Allergies Allergy/AdvReac Type Severity Reaction Status Date / Time hydrocodone Allergy ADR-Headach Verified 12/27/21 10:26 e leflunomide AdvReac Severe severe Verified 12/27/21 10:26 diarrhea PFSH Acute PFSH: Medical History Chronic meniscal tear of knee Right COVID-19 (06/2021) Guttate psoriasis High risk medication use Hyperlipidemia OA (osteoarthritis) of knee Polyarticular psoriatic arthritis Renal mass Patient reported history of kidney mass, previously followed by nephrology, told no change last check and did not need further nephrology follow-up Status post administration of all doses of COVID-19 vaccine series plus boosters Surgical History H/O shoulder replacement 08/09/2021 Right History of appendectomy History of bilateral carpal tunnel release History of inguinal hernia repair Right History of knee replacement 06/06/2017 Left History of vasectomy Status post aspiration of joint (10/2019) Right knee Family History Father Hyperlipidemia real bad Mother Heart failure fluid around heart , had heart attack Other Stroke Denies family history of Rheumatoid arthritis Diabetes Systemic lupus erythematosus (SLE) in adult Hypertension Social History Smoking and tobacco status: former smoker Quit status (tobacco): has quit using tobacco Former quit date comment: Quit smoking/chewing tobacco ~2009 Alcohol intake: never Substance/Drug Use: never Lives independently: Yes Household members: spouse Marital status: Current occupational status: retired and disabled Vitals/I&O/Wt Last Vital Signs Temp 98.4 F 12/27/21 08:19 Pulse 79 12/27/21 10:30 Resp 15 12/27/21 10:30 BP 153/94 12/27/21 10:30 Pulse Ox 92 12/27/21 10:30 Weight last 48 hrs Weight 195 lb Physical Exam Narrative: Gen: sitting comfortably in NAD HEENT/Neck: No JVD, No pallor, icterus or lymphadenopathy RS: decrease b/l air entry, No wheezes or rales. prolonged expiration. CVS: S1, S2 regular, No murmur, rub or gallop PA: soft, NTND, No organomegaly Ext: No edema, cyanosis, digital deformity noted MAIL TRUCK DRIVER: AAOx3, No FND Data : 12/27/21 08:25 12/27/21 08:25 A&P Assessment and plan (1) NSTEMI (non-ST elevated myocardial infarction): NSTE- ACS -troponins not elevated much, 6 hr still pending inspite of being due at 3 pm -EKG changes and lateral WMA -Plan for LHC in mornings. Risks and benefits were discussed with the patients. Possible complications including risk of heart attack stroke and , coronary perforation, arrhy thmia, cardiac tamponade in urgent CABG were discussed with the patient as well. Plan is to proceed for the procedure in morning. Status: Acute (2) Hyperlipidemia: Status: Chronic (3) Polyarticular psoriatic arthritis: Status: Chronic Plan Former smoker GERD Thank you for allowing me to participate in patient's care. Please feel free to call with questions or concerns. Coding Level of Care Code Acute Chemical Checker for Marguerite Fwd Diagnoses NSTEMI (non-ST elevated myocardial infarction) I21.4 Hyperlipidemia E78.5 Polyarticular psoriatic arthritis L40.59
--- NOTE | 2021-12-27 14:12 | ECG_ITS ---
[facility] Test Date: 2021-12-27 Pat Name: Trenton Leung Department: Room: [facility] Gender: Male Director Nursing Service: : 1950 Requested By: Rodolfo Carter Order Number: [id number] Whitley MD: Blaze Thurman M.D. Measurements Intervals [place] Rate: 95 P: 26 CO: 176 QRS: 27 QRSD: 101 T: 89 QT: 357 QTc: 449 Interpretive Statements SINUS RHYTHM POSSIBLE INFERIOR MYOCARDIAL INFARCTION , PROBABLY OLD [30 ms Q WAVE IN II/aVF] Compared to ECG 12/27/2021 10:18:08 Myocardial infarct finding now present ST (T wave) deviation no longer present Electronically Signed On 12-27-2021 21:06:18 CDT by Blaze Thurman M.D. [email or web address]
[2021-12-27] MEDS: pantoprazole DR 40 mg Tablet PO (17:27)
[2021-12-27] MEDS: sulfaSALAzine 500 mg Tablet PO (17:27)
[2021-12-27] MEDS: ticagrelor 90 mg Tablet 180 MG PO (17:29)
[2021-12-27 18:59] LABS: Troponin T (5th) Once 146 ng/L (0-15)
[2021-12-27] MEDS: atorvastatin 40 mg Tablet 80 MG PO (21:03)
[2021-12-27] MEDS: metoprolol tartrate 25 mg Tablet 12.5 MG PO (21:03)
[2021-12-28] VITALS (31 sets, daily range): BP systolic 105–144; BP diastolic 71–96; PULSE 58–98; RESP 12–24; TEMP 36.6–37.4; O2SAT 88–95
--- NOTE | 2021-12-28 00:06 | PC.NURSE ---
Signed consent attached to chart, patient bathed in CHG, pulses marked, groin and wrist shaved.
[2021-12-28] MEDS: nitroglycerin 1 gm/inch oint Pkt 1 INCH TOPICAL (04:38)
[2021-12-28] MEDS: sodium chloride 0.9% 1,000 ML 50 ML IV (04:38)
--- NOTE | 2021-12-28 07:11 | XACV_ITS ---
Exam Room: [facility] Ht: 178 cm Wt: 88 kg BSA: 2.11 m2 Gender: Male : 1950 Any Known Allergies: Other Exam Priority: Routine Procedure(s): Procedure Description: Diagnostic procedure Procedure Description: PCI procedure Procedure Description: Left Heart Catheterization Procedure Description: Left ventriculography Procedure Description: Drug Eluting Coronary Stent Procedure Description: PTCA Procedure Description: Coronary Angiography Diagnostic Cath Status: Elective Diagnostic Findings * Patient with typical angina which has been accelerating and become more unstable recently. Angiography performed to assess the coronary arteries. The left main coronary artery is normal. The LAD contains a 20 to 30% mid stenosis which is mildly calcified. The right coronary artery contains some mild luminal irregularities in the proximal portion but otherwise is normal. There is a 99% stenosis in the mid circumflex at the bifurcation of the 2 marginal branches. PCI Status: Elective PCI LVEF Assessed: Yes PCI Indication: New Onset Angina <= 2 months Interventional Findings * The lesion was predilated with a 2.5 x 8 mm balloon. Subsequently it was stented using a 2.75 x 12 mm drug-eluting stent. The more proximal branch was stented and the more distal branch was jailed. An excellent angiographic result was obtained. Decision for PCI with Surgical Consult: No PCI for Multi-vessel Disease: No Conclusions 1. 99% underwent balloon angioplasty and subsequent stenting. No complications. Recommendations * Dual antiplatelet therapy. Interventional RX Recommendation: PCI w/o planned CABG Diagnostic RX Recommendation: PCI w/o planned CABG Anticoagulation: Heparin Ventriculography Ejection Fraction: 60.0 % Pressures Phase:Rest AO : 106 / 72 ( 83 ) @ 9:21:00 AM 95 / 66 ( 80 ) @ 9:23:00 AM 107 / 76 ( 90 ) @ 9:24:00 AM 125 / 81 ( 97 ) @ 9:34:00 AM 125 / 81 ( 96 ) @ 9:34:00 AM 106 / 75 ( 90 ) @ 9:38:00 AM LV : 140 / -12 / 3 @ 9:33:00 AM 128 / -8 / 11 @ 9:33:00 AM 137 / -1 / 11 @ 9:34:00 AM Valves Phase:DefaultPhase AV : 21.0 @ 8:57:55 AM AV Mean Gradient: 14.0 @ 8:57:55 AM Clinical Evaluation EBL: 5mL-10mL Procedural Details Procedure Consent Obtained. Current Diagnosis : Chest Pain. Pre-Procedure Time Out. Identified patient by full name and date of as verbalized by the patient/guarantor. Does the consent match the physician's order: Yes. Accurate & Complete Informed Consent: Yes. Inpatient/Outpatient History & Physical on Chart: Yes. If H&P is completed, is and addenduem needed: No; If yes, is the addendum complete: N/A. Visualize and Verify Site with Patient/Guarantor: N/A. Relevant Radiology Images available: Yes. Pre-op teaching completed and patient verbalized understanding. The risks, benefits, and alternatives of sedation and/or procedure were discussed by physician. The patient agrees to continue. Procedure started. [facility] Clinical Fraility Score: 3: Managing Well. Roller Mechanic Indications: Other. Chest Pain Symptom Assessment: Atypical Angina. Correct patient, site and procedure confirmed by cath team. Current diagnosis: Chest Pain. PERRLA. Strong, equal hand nuclear fuels reclamation engineer bilaterally. Lungs clear x 5 lobes. IV Site on Arrival: 20 gauge in the left anticubital. IV Fluids: 0.9% NaCl at KVO. 200 mL infused prior to laborer prestressed concrete. Pre Procedural Pulses: right radial was 2+. Oxygen started at 2liters/min via nasal canula. right groin was prepped with chloroprep then draped in the usual sterile fashion. right radial was prepped with chloroprep then draped in the usual sterile fashion. Physician notified. Baseline sample Acquired. HR: 101 BPM. Physician arrived. Physician scrubbed in. Immediate Pre-Procedure Time Out. Correct Patient: Yes; Correct Procedure: Yes; Correct Site: Yes; Correct Patient Position: Yes; Correct Supplies: Yes; Dried Flammable Prep: Yes; Blood Products Available: N/A;. Lidocaine 1% infiltrated to the right radial. Arterial access obtained. A 5 russian TIG catheter in over wire. Multiple views taken of left coronary artery. Catheter redirected to the RCA. Multiple views taken of right coronary artery. Catheter removed over the standard wire. A 5 russian Angled Pig catheter in over wire. wire out. glidewire inserted. EDP Sample taken: LV 140/-13,3; HR: 83 BPM; SpO2: 94%. LV gram performed in CERVANTES @ 10 mL/second for a total of 30 mL. EDP Sample taken: LV 128/-9,11; HR: 92 BPM; SpO2: 93%. Pullback taken: LV 137/-2,11; AO 125/81(97); Mean: 14mmHg, Peak to Peak: 21mmHg, SEP: 7sec/min; HR: 72 BPM; SpO2: 94%. Catheter removed over the glide wire. 6 russian XB 3.5 guide catheter was inserted over the wire. [place] guidewire was advanced through the guide catheter to lesion in the mid Circ. Inflation number : 1 A AB TREK 2.50X8 RX BALLOON was prepped and advanced across the Mid CX , then inflated to 10 KIP for 0:25 seconds. Inflation number: 2 The AB TREK 2.50X8 RX BALLOON was reinflated across the Mid CX, to 10 KIP for 0:31 seconds. Balloon out. Inflation Number : 3 A RAY Goff MIRANDA 2.75X12 TRISHA -Lot Number# [id number] EXP: 10/07/2024 was prepped and advanced across the Mid CX. The stent was deployed at 12 KIP for 0:23 seconds. Stent balloon out over wire. Wire out. Guide catheter out. A TR Band was successful obtaining hemostatsis at the Right Radial artery insertion site. Post Procedure: Pulses reassessed and unchanged. PERRLA. Strong, equal hand nuclear fuels reclamation engineer bilaterally. No VTE prophylaxis required. Medication's Wasted: Nitro = 49.8 mg. Medication's Wasted: Heparin = 1000 units. Total IV fluids: 100 mL. Complications: None. Estimated blood loss: 5mL-10mL. Responsiveness - Normal response to verbal stimuli; alert and oriented, PERRLA. Airway - Unaffected, no intervention required; spontaneous ventilation. Circulation: W/N/L, pulses unchanged. Nausea/Vomiting: No. Procedure completed. Patient transferred by wheelchair to ICU. Vital chart was stopped. Access Site Site: Right Radial artery Sheath Size: 6 Fr Hemostasis Method: TR Band Hemostasis Success: Successful Procedure Medications Start: 8:10 AM Stop: 8:10 AM Medication: Versed 1 mg and Fentanyl 25 mcg Amount: 1 Route: I.V. Start: 8:16 AM Stop: 8:16 AM Medication: Versed 1 mg and Fentanyl 25 mcg Amount: 1 Route: I.V. Start: 8:12 AM Stop: 8:12 AM Medication: Fentanyl Amount: 50 mcg Route: I.V. Start: 8:18 AM Stop: 8:18 AM Medication: Nitrogylcerin Amount: 200 mcg Route: I.A. Start: 8:30 AM Stop: 8:30 AM Medication: Heparin Amount: 5000 units Route: I.V. I, the attending physician, have reviewed and verified all procedure medications. Yes, all medications given per verbal order History/Risk Factors Hypertension: No Dyslipidemia: Yes Peripheral Arterial Disease (PAD): No Myocardial Infarction (DE): No Obesity: No Renal Disease: No Prior Interventions PCI: No CABG: No Valve Surgery: No Report Signatures Finalized by Dr. Shakir Pickering MD on 12/28/2021 09:20 AM
[2021-12-28 07:22] LABS: Basophils # 0.1 10^3/uL (0.0-0.1); Basophils % 1.4 %; Eosinophils # 0.2 10^3/uL (0.0-0.8); Eosinophils % 3.3 %; Hematocrit 40.9 % (42.0-52.0); Hemoglobin 14.6 g/dL (11.7-16.6); Lymphocytes # 1.3 10^3/uL (0.8-4.8); Lymphocytes % 25.5 %; Mean Corpuscular Hemoglobin 31.1 pg (28.0-34.0); Mean Platelet Volume 10.6 fL (7.4-10.4); Monocytes # 0.5 10^3/uL (0.2-0.9); Monocytes % 9.4 %; Neutrophils # 3.09 10^3/uL (1.8-7.7); Neutrophils % 60.2 %; Nucleated Red Blood Cells % 0 %; Platelet Count 170 10^3/cmm (130-400); Red Cell Distribution Width 12.7 % (12.1-15.1); White Blood Count 5.1 10^3/uL (4.0-10.0)
[2021-12-28 07:26] LABS: Mean Corpuscular HGB Conc 35.7 g/dL (30.0-36.0)
[2021-12-28] MEDS: diphenhydrAMINE 50 mg Capsule PO (07:37)
[2021-12-28 07:42] LABS: Anion Gap 14.7 (5-19); Blood Urea Nitrogen 23 mg/dL (8-23); Calcium 9.4 mg/dL (8.5-10.5); Carbon Dioxide 25 mmol/L (22-29); Chloride 107 mmol/L (98-107); Chol HDL Ratio 4.09 mg/dL (1.0-5.00); Cholesterol 188 mg/dL (0-200); Glucose 92 mg/dL (65-115); HDL Cholesterol 46 mg/dL (60-100); LDL Cholesterol Calculated 109 mg/dL (50-129); LDL HDL Ratio 2.37 RATIO (0.00-3.22); Osmolality Calculated 297 mOsm/kg (285-295); Potassium 4.7 mmol/L (3.5-5.1); Sodium 142 mmol/L (136-145); Triglycerides 167 mg/dL (0-150)
--- NOTE | 2021-12-28 08:00 | PC.NURSE ---
Patient taken to color laboratory technician by color laboratory technician nurses.
--- NOTE | 2021-12-28 09:14 | PC.NURSE ---
Pt was brought back by wheelchair by electrical laboratory technician nurse. 15 Ml in TR band.
[2021-12-28] MEDS: sulfaSALAzine 500 mg Tablet PO ×2 (09:49→17:18)
[2021-12-28] MEDS: metoprolol tartrate 25 mg Tablet 12.5 MG PO (09:49)
[2021-12-28] MEDS: ticagrelor 90 mg Tablet PO ×2 (09:49→17:18)
[2021-12-28] MEDS: pantoprazole DR 40 mg Tablet PO ×2 (09:50→17:18)
[2021-12-28] MEDS: aspirin 81 mg EC Tablet PO (10:07)
[2021-12-28] MEDS: acetaminophen 325 mg Tablet 650 MG PO (11:23)
--- NOTE | 2021-12-28 12:41 | P.PN_ITS ---
Subjective Subjective: Status post stent in left circumflex currently on aspirin and Brilinta no active complaints Patient might be able to go home tomorrow Currently in ICU He was seen after his angioplasty Ectopic atrial beats were noted Vitals/I&O/Wt Last Vital Signs Temp 98.7 F 12/28/21 12:00 Pulse 74 12/28/21 12:00 Resp 18 12/28/21 12:00 BP 131/96 12/28/21 12:00 Pulse Ox 92 12/28/21 12:00 12/27/21 12/28/21 12/28/21 22:59 06:59 14:59 Intake Total 590 / 590 240 / 240 Output Total 750 / 750 700 / 1450 450 / 450 Balance -160 / -160 -700 / -860 -210 / -210 Weight last 48 hrs Weight 88.451 kg Weight 88.451 kg Physical Exam Narrative: Patient is laying supine Euvolemic No active chest pain Nonfocal exam Currently on room air Abdomen soft S1, S2 Very pleasant cooperative TR band on right wrist Data : 12/28/21 06:30 12/28/21 06:30 A&P Assessment and plan (1) Immunization counseling: Status: Acute (2) High risk medication use: Status: Chronic (3) Polyarticular psoriatic arthritis: Status: Chronic (4) Chronic meniscal tear of knee: Status: Chronic (5) Non-ST elevation AK (NSTEMI): Status: Acute (6) Angina at rest: Status: Acute (7) Coronary angioplasty status: Status: Acute Plan NSTEMI: Status post coronary angioplasty, stent in left circumflex Currently on aspirin and Brilinta Patient does not have any director project management Will give him referral at the time of discharge Dr. No is seeing this patient as well Patient currently is on Metroprolol tartrate for ectopic atrial beats Continue dual antiplatelet therapy, atorvastatin Gentle fluid hydration Patient is on cardiac diet No active complaints Continue sulfasalazine He also have back pain without acute exacerbation DVT prophylaxis: Covered with Lovenox Patient is full code Cardiac diet Will be able to discharge him tomorrow Attestations Medical Necessity Statement*: Continue medical management Time Spent in Patient Care: 30 Coding Level of Care Code Acute Water Resources Technical Officer for g Fwd Diagnoses Immunization counseling Z71.89 High risk medication use Z79.899 Polyarticular psoriatic arthritis L40.59 Chronic meniscal tear of knee M23.209 Non-ST elevation [place] (NSTEMI) I21.4 Angina at rest I20.8 Coronary angioplasty status Z98.61
[2021-12-28] MEDS: enoxaparin 40 mg/0.4 mL Syringe SUBCUT (20:28)
[2021-12-28] MEDS: atorvastatin 40 mg Tablet 80 MG PO (20:28)
[2021-12-28] MEDS: metoprolol tartrate 25 mg Tablet PO (20:28)
[2021-12-29 00:06] VITALS: BP 114/82; PULSE 70; RESP 17; TEMP 36.6; O2SAT 95
[2021-12-29 05:30] VITALS: BP 129/88; PULSE 64; RESP 16; TEMP 36.7; O2SAT 94
[2021-12-29 05:39] VITALS: PULSE 66
[2021-12-29 06:19] LABS: Basophils # 0.1 10^3/uL (0.0-0.1); Basophils % 1.1 %; Eosinophils # 0.2 10^3/uL (0.0-0.8); Hematocrit 44.7 % (42.0-52.0); Hemoglobin 14.7 g/dL (11.7-16.6); Lymphocytes # 1.2 10^3/uL (0.8-4.8); Lymphocytes % 21.5 %; Mean Corpuscular HGB Conc 32.9 g/dL (30.0-36.0); Mean Corpuscular Hemoglobin 29.9 pg (28.0-34.0); Mean Platelet Volume 9.8 fL (7.4-10.4); Monocytes # 0.5 10^3/uL (0.2-0.9); Monocytes % 8.7 %; Neutrophils % 65.5 %; Nucleated Red Blood Cells % 0 %; Platelet Count 167 10^3/cmm (130-400); Red Blood Count 4.91 10^6/uL (4.1-5.3); Red Cell Distribution Width 12.5 % (12.1-15.1); White Blood Count 5.6 10^3/uL (4.0-10.0)
[2021-12-29 06:54] LABS: Anion Gap 14.7 (5-19); Blood Urea Nitrogen 22 mg/dL (8-23); Calcium 9.2 mg/dL (8.5-10.5); Carbon Dioxide 24 mmol/L (22-29); Chloride 104 mmol/L (98-107); Glucose 103 mg/dL (65-115); Osmolality Calculated 290 mOsm/kg (285-295); Potassium 4.7 mmol/L (3.5-5.1); Sodium 138 mmol/L (136-145)
[2021-12-29 08:00] VITALS: BP 138/74; PULSE 66; RESP 16; TEMP 36.7; O2SAT 94
[2021-12-29] MEDS: pantoprazole DR 40 mg Tablet PO (08:49)
[2021-12-29] MEDS: aspirin 81 mg EC Tablet PO (08:49)
[2021-12-29] MEDS: sulfaSALAzine 500 mg Tablet PO (08:49)
[2021-12-29] MEDS: ticagrelor 90 mg Tablet PO (08:49)
--- NOTE | 2021-12-29 08:49 | PM.DCS ---
Discharge Providers Date of Admission: 12/27/21 10:01 Date of Discharge: December 29, 2021 Attending Provider at Admission: Peyton Engle MD Attending Provider at Discharge: Magali Brody MD Primary Care Provider: Trent Viveros MD Diagnoses at Discharge Discharge Diagnosis (1) Immunization counseling: Status: Acute (2) High risk medication use: Status: Chronic (3) Polyarticular psoriatic arthritis: Status: Chronic (4) Chronic meniscal tear of knee: Status: Chronic Permanent problem details: Right (5) Non-ST elevation [place] (NSTEMI): Status: Acute (6) Angina at rest: Status: Acute (7) Coronary angioplasty status: Status: Acute Reason for Visit Reason for Visit: chest pain Hospital Course Hospital Course 71-year-old male who was admitted for management of NSTEMI. EKG showed ST depression in lead II III aVF V4 to V6, echo with normal left ventricular function with basal to mid inferior lateral and anterior wall motion abnormality, grade 1 diastolic dysfunction, EF 55%. Status post coronary angiogram via right radial, stent in left circumflex. Patient has been prescribed aspirin and Brilinta. He will see Jessica Mendosa in a week and Dr. No within a month. No postoperative complications. Hemoglobin remained stable. No fever. Patient has quit smoking long time ago. Does not drink alcohol on daily basis. Active for his age. Being discharged in stable condition. Physical Exam Narrative: Patient is laying supine Euvolemic No active chest pain Nonfocal exam Currently on room air Abdomen soft S1, S2 Very pleasant cooperative No signs of hematoma right wrist Discharge Data Studies Completed and Pending Completed Studies During Hospitalization Category Date Time Status [employer] request for service Routine Exams 12/28/21 07:11 Completed XR chest 1V portable [id number] Stat Exams 12/27/21 08:12 Completed CV. echo complete* [id number] Routine Ultrasound 12/27/21 10:33 Completed Radiology Impressions Chest X-Ray 12/27/21 08:12 IMPRESSION: Chronic emphysema. No pneumonia. Laboratory Results WBC 5.6 10^3/uL (4.0-10.0) 12/29/21 06:03 RBC 4.91 10^6/uL (4.1-5.3) 12/29/21 06:03 Hgb 14.7 g/dL (11.7-16.6) 12/29/21 06:03 Hct 44.7 % (42.0-52.0) 12/29/21 06:03 MCV 91.0 fl (80-94) 12/29/21 06:03 MCH 29.9 pg (28.0-34.0) 12/29/21 06:03 MCHC 32.9 g/dL (30.0-36.0) D 12/29/21 06:03 RDW 12.5 % (12.1-15.1) 12/29/21 06:03 Plt Count 167 10^3/cmm (130-400) 12/29/21 06:03 MPV 9.8 fL (7.4-10.4) 12/29/21 06:03 Neut % (Auto) 65.5 % 12/29/21 06:03 Lymph % (Auto) 21.5 % 12/29/21 06:03 [place] % (Auto) 8.7 % 12/29/21 06:03 Eos % (Auto) 3.0 % 12/29/21 06:03 Baso % (Auto) 1.1 % 12/29/21 06:03 Neut # (Auto) 3.70 10^3/uL (1.8-7.7) 12/29/21 06:03 Lymph # (Auto) 1.2 10^3/uL (0.8-4.8) 12/29/21 06:03 [place] # (Auto) 0.5 10^3/uL (0.2-0.9) 12/29/21 06:03 Eos # (Auto) 0.2 10^3/uL (0.0-0.8) 12/29/21 06:03 Baso # (Auto) 0.1 10^3/uL (0.0-0.1) 12/29/21 06:03 Nucleated RBC % (auto) 0 % 12/29/21 06:03 Nucleated RBCs # 0.0 /100WBC 12/29/21 06:03 Sodium 138 mmol/L (136-145) 12/29/21 06:03 Potassium 4.7 mmol/L (3.5-5.1) 12/29/21 06:03 Chloride 104 mmol/L (98-107) 12/29/21 06:03 Carbon Dioxide 24 mmol/L (22-29) 12/29/21 06:03 Anion Gap 14.7 (5-19) 12/29/21 06:03 BUN 22 mg/dL (8-23) 12/29/21 06:03 Creatinine 1.3 mg/dL (0.7-1.2) H 12/29/21 06:03 GFR Calculation Not Reportable 12/29/21 06:03 Glucose 103 mg/dL (65-115) 12/29/21 06:03 Calculated Osmolality 290 mOsm/kg (285-295) 12/29/21 06:03 Calcium 9.2 mg/dL (8.5-10.5) 12/29/21 06:03 Total Bilirubin 0.5 mg/dL (0.15-1.2) 12/27/21 08:25 AST 19 U/L (0-40) 12/27/21 08:25 ALT 16 U/L (0-41) 12/27/21 08:25 Alkaline Phosphatase 110 IU/L (40-130) 12/27/21 08:25 Troponin T Gen 5 ng/L 146 ng/L (0-15) H* 12/27/21 17:40 Troponin T Baseline 119 ng/L (0-15) H* 12/27/21 08:25 Troponin T 120 Minute 125.7 ng/L (0-15) H 12/27/21 10:00 Delta Troponin T 6.7 ABS# (0-10) 12/27/21 10:00 Total Protein 7.1 g/dL (6.6-8.7) 12/27/21 08:25 Albumin 4.7 g/dL (3.5-5.2) 12/27/21 08:25 Globulin 2.4 g/dL (1.3-4.6) 12/27/21 08:25 Triglycerides 167 mg/dL (0-150) H 12/28/21 06:30 Cholesterol 188 mg/dL (0-200) 12/28/21 06:30 LDL Cholesterol, Calc 109 mg/dL (50-129) 12/28/21 06:30 HDL Cholesterol 46 mg/dL (60-100) L 12/28/21 06:30 LDL/HDL Ratio 2.37 RATIO (0.00-3.22) 12/28/21 06:30 Cholesterol/HDL Ratio 4.09 mg/dL (1.0-5.00) 12/28/21 06:30 Vitals Last Vital Signs Temp 98.1 F 12/29/21 08:00 Pulse 66 12/29/21 08:00 Resp 16 12/29/21 08:00 BP 138/74 12/29/21 08:00 Pulse Ox 94 12/29/21 08:00 O2 Del Method 12/28/21 20:49 Discharge Plan Discharge Patient Disposition: Home Condition: Stable Prescriptions: New atorvastatin 40 mg Tablet 80 mg PO BEDTIME Qty: 30 3RF Brilinta 90 mg Tablet 90 mg PO BID Qty: 60 3RF metoprolol tartrate 25 mg Tablet 25 mg PO BID@0900,2100 Qty: 60 3RF Continued ascorbate calcium (vitamin C) 500 mg tablet 500 mg PO DAILY aspirin [Adult Aspirin Regimen] 81 mg tablet,delayed release (DR/EC) 81 mg PO DAILY Otezla 30 mg tablet 30 mg PO DAILY Qty: 30 3RF omeprazole 40 mg capsule,delayed release(DR/EC) 40 mg PO DAILY Qty: 30 4RF Cosentyx Pen 150 mg/mL pen injector 150 mg SUBCUT .[id number] Qty: 2 2RF omega-3 fatty acids-fish oil 684-1,200 mg Capsule,Delayed Release(Dr/Ec) 1 cap PO DAILY sulfasalazine 500 mg tablet 500 mg PO BID Discontinued pravastatin 40 mg tablet 40 mg PO QDAY Discharge Orders: Discharge Order (Routine); Ordered 12/29/21 Ordered By: Magali Brody Other Ambulatory Orders: Basic Metabolic Panel (Routine) Timeframe: 1 Week Facility: [facility] [place] - Location: Lab - Main Lab Ordered By: Magali Brody Referrals: Chintan Leonardo MD [Physician] - (appointment scheduled : January at time of 2:20 pm ) Jessica Mendosa FNP [Nurse Practitioner] - 1 week (This appointent has been scheduled ,will need post hospital ,wound check lab work ,from angiogram . appointment scheduled : January 05 .10:45 am ) Kourtney No MD [Physician] - 2 months (scheduled appointment : March 02, 2022, time of 3:00 pm .) Discharge Diet: Cardiac Discharge Activity: Limit activity as instructed Patient Instructions: Metoprolol (By mouth) (Lopressor, Toprol XL), Atorvastatin (By mouth) (Lipitor), Ticagrelor (By mouth) (Brilinta), Heart Attack (DC), Coronary Angioplasty (DC), Heart Healthy Diet (DC), Coronary Intravascular Stent Placement (DC), Opioid Safety, Post Angiogram Home Care Instructions, Post Heart Attack Stoplight Activity Restrictions/Additional Instructions: Do not lift anything more than 5 lbs for 1 week. Keep the site dry and clean Take medications as prescribed and follow up as scheduled. Discharge Attestations Time Spent in Discharge Care*: less than 30 min Quality Metrics Clinical Quality Measures [ No reported AMI, CVA or VTE this stay] Coding Level of Care Code Acute Chg FW DC note Diagnoses Immunization counseling Z71.89 High risk medication use Z79.899 Polyarticular psoriatic arthritis L40.59 Chronic meniscal tear of knee M23.209 Non-ST elevation NJ (NSTEMI) I21.4 Angina at rest I20.8 Coronary angioplasty status Z98.61
[2021-12-29] MEDS: metoprolol tartrate 25 mg Tablet PO (08:52)
--- NOTE | 2021-12-29 09:01 | PC.NURSE ---
During management rounds patient and had question about a rheumatology drug that is a home medication. Patient states he takes Cosentyx 150mg Biweekly on Tuesdays and since he was in the hospital on Monday12/28/21 he did not take his injection. I contacted Dr. Bajwa[facility] clinic and was directed to his nurse. Nurse KORTNEY Garcia gave instructions for patient to take this injection today when he gets home after discharge and to move his Biweekly dose to Wednesdays. Patient and both verbalize understanding. Teach back utilized. Patient does have follow up appointment with Rheumatology clinic post discharge. Patient and both verbalize and teach back that if they have any further questions regarding their home rheumatology medications post discharge to contact Rheumatology clinic. Number provided. No further questions.
[2021-12-29 09:27] VITALS: BP 138/74; PULSE 66; RESP 16; TEMP 36.7; O2SAT 94
[2021-12-29 09:51] VITALS: BP 138/74; PULSE 66; RESP 16; TEMP 36.7; O2SAT 94
--- NOTE | 2021-12-29 10:19 | PC.CHAP ---
Pastoral Care Encounter/Spiritual Assessment Type of Contact [] Declined overnight stocker visit [] Patient/Family/Request visit [] Outpatient visit [] Follow-up visit [] Physician referral [] Code/Alert [x] Routine visit [] Staff referral [] Actively dying [] Patient sleeping [x] Family support [] [] Out of room [] Palliative care [] [] Receiving care in room [] Pre-surgical visit [] Trauma [] Long length of stay [x] ICU visit [] Other: Relational/Emotional Strength [] Patient feels connected with others/family/visitors/staff [] Distress [] Loneliness/isolation [] Abandonment Spirituality of Patient [] Person of Berenice [] Attends Rastafarian of their Berenice [] Believes in Prayer [] Reads Bible or Mandaen materials [] There are Spiritual issues to be addressed Supervisor [facility] Interventions [x] Prayer [x] Active listening [x] Non-anxious presence [x] Spiritual/emotional support [] Crisis/trauma care [] Spiritual counseling [] Bereavement support [] Provided bereavement packet [] Provided Bible/devotional materials [] Provided toy/stuffed animal, coloring book to patient or family member [] Provided Communion [] Anointing/[place] [] Salvation [x] Completed spiritual assessment [] Other: Impact on Illness or Injury [] Angry [] Fearful [] Anxious [] Often cries [] Exhaustion [] Unable to work [] Unable to attend anabaptism [] Unable to walk/stand [] Unable to read [] Unable to drive [] Unable to eat/drink [] Unable to sleep [] Unable to be with family [] Patient intubated [] Other: Summary Time spent with patient
== END 2021-12-29 11:00 | disposition home or self-care (01) | DRG 247 ==
LOC: ER 08:49 → ICU 11:58
PROVIDERS: Internal Medicine Cardiovascular Disease; Admitting Provider Hospitalist; Emergency Provider Family Medicine; PCP Family Medicine; Visit Provider Internal Medicine
PROC: 027034Z Dilation of Coronary Artery, One Artery with Drug-eluting Intraluminal Device, Percutaneous Approach (ICD-10-PCS; principal; 2021-12-28 08:30)
PROC: 027034Z Dilation of Coronary Artery, One Artery with Drug-eluting Intraluminal Device, Percutaneous Approach (ICD-10-PCS; 2021-12-28 08:30)
DX: I21.4 Non-ST elevation (NSTEMI) myocardial infarction (principal); E78.5 Hyperlipidemia, unspecified; Z87.891 Personal history of nicotine dependence; L40.50 Arthropathic psoriasis, unspecified; Z86.16 Personal history of COVID-19; R03.0 Elevated blood-pressure reading, without diagnosis of hypertension; I25.119 Atherosclerotic heart disease of native coronary artery with unspecified angina pectoris; Z79.82 Long term (current) use of aspirin; Z82.49 Family history of ischemic heart disease and other diseases of the circulatory system
CPT/HCPCS: 36415; 71045; 80048; 80053; 80061; 84484; 85025; 93005; 93306; 93452; 93458; 94760; 96360; 96372; 99152; 99153; 99285; C1725; C1769; C1874; C1887; C1894; C9600; J1644; J1650; J2250; J3010; J3490; J7030; Q0163; Q9967

== ENCOUNTER → 2022-01-05 10:34 | Outpatient (BNVA) | payer MEDICARE, SELFPAY | PROVIDERS: PCP Family Medicine; Visit Provider Nurse Practitioner Family | DX: I25.10 Atherosclerotic heart disease of native coronary artery without angina pectoris (principal) | CPT/HCPCS: 93005; 93306; 99213 ==

== ENCOUNTER 2022-01-11 11:25 | Outpatient (CLI) | payer MEDICARE, SELFPAY ==
[2022-01-11 12:35] LABS: Anion Gap 14.9 (5-19); Blood Urea Nitrogen 19 mg/dL (8-23); Calcium 9.6 mg/dL (8.5-10.5); Carbon Dioxide 25 mmol/L (22-29); Chloride 103 mmol/L (98-107); Glucose 122 mg/dL (65-115); Osmolality Calculated 292 mOsm/kg (285-295); Potassium 3.9 mmol/L (3.5-5.1); Sodium 139 mmol/L (136-145)
== END 2022-01-11 11:26 | disposition home or self-care (01) ==
PROVIDERS: PCP Family Medicine; Visit Provider Nurse Practitioner Family
DX: I25.10 Atherosclerotic heart disease of native coronary artery without angina pectoris (principal); N17.9 Acute kidney failure, unspecified; N18.9 Chronic kidney disease, unspecified
CPT/HCPCS: 36415; 80048

== ENCOUNTER → 2022-01-20 13:47 | Outpatient (BNVA) | payer MEDICARE, SELFPAY | PROVIDERS: PCP Family Medicine; Visit Provider Internal Medicine Rheumatology | DX: L40.59 Other psoriatic arthropathy (principal); L40.4 Guttate psoriasis; M17.11 Unilateral primary osteoarthritis, right knee; Z96.652 Presence of left artificial knee joint | CPT/HCPCS: 99214 ==

== ENCOUNTER → 2022-03-02 14:52 | Outpatient (BNVA) | payer MEDICARE, SELFPAY | PROVIDERS: PCP Family Medicine; Visit Provider Internal Medicine Cardiovascular Disease | DX: I25.10 Atherosclerotic heart disease of native coronary artery without angina pectoris (principal); I10 Essential (primary) hypertension; E78.5 Hyperlipidemia, unspecified; L40.59 Other psoriatic arthropathy; Z87.891 Personal history of nicotine dependence | CPT/HCPCS: 99214 ==

== ENCOUNTER → 2022-04-25 14:18 | Outpatient (BNVA) | payer MEDICARE, SELFPAY | PROVIDERS: PCP Family Medicine; Visit Provider Internal Medicine Rheumatology | DX: L40.59 Other psoriatic arthropathy (principal); L40.4 Guttate psoriasis; M17.10 Unilateral primary osteoarthritis, unspecified knee; M17.11 Unilateral primary osteoarthritis, right knee; Z96.652 Presence of left artificial knee joint | CPT/HCPCS: 99204 ==

== ENCOUNTER 2022-07-25 08:55 | Outpatient (CLI) | payer MEDICARE, SELFPAY ==
[2022-07-23 08:46] LABS: Basophils # 0.1 10^3/uL (0.0-0.1); Eosinophils # 0.1 10^3/uL (0.0-0.8); Eosinophils % 1.7 %; Hematocrit 44.4 % (42.0-52.0); Hemoglobin 14.6 g/dL (11.7-16.6); Lymphocytes # 1.4 10^3/uL (0.8-4.8); Mean Corpuscular HGB Conc 32.9 g/dL (30.0-36.0); Mean Corpuscular Hemoglobin 31.7 pg (28.0-34.0); Mean Corpuscular Volume 96.3 fl (80-94); Mean Platelet Volume 10.2 fL (7.4-10.4); Monocytes # 0.4 10^3/uL (0.2-0.9); Monocytes % 8.2 %; Neutrophils # 3.13 10^3/uL (1.8-7.7); Neutrophils % 60.7 %; Nucleated Red Blood Cells % 0 %; Platelet Count 197 10^3/cmm (130-400); Red Blood Count 4.61 10^6/uL (4.1-5.3); Red Cell Distribution Width 12.4 % (12.1-15.1); White Blood Count 5.2 10^3/uL (4.0-10.0)
[2022-07-23 09:34] LABS: Alanine Aminotransferase 27 U/L (0-41); Albumin Level 4.7 g/dL (3.5-5.2); Alkaline Phosphatase 108 U/L (40-130); Aspartate Amino Transferase 34 U/L (0-40); Globulin 2.4 g/dL (1.3-4.6); Total Bilirubin 0.5 mg/dL (0.15-1.2); Total Protein 7.1 g/dL (6.6-8.7)
== END 2022-07-25 08:56 | disposition home or self-care (01) ==
LOC: LAB 08:56
PROVIDERS: PCP Family Medicine; Visit Provider Internal Medicine Rheumatology
DX: L40.59 Other psoriatic arthropathy (principal); M19.90 Unspecified osteoarthritis, unspecified site; Z79.899 Other long term (current) drug therapy
CPT/HCPCS: 36415; 80076; 82565; 85025; 86140

== ENCOUNTER → 2022-08-10 12:53 | Outpatient (BNVA) | payer MEDICARE, SELFPAY | PROVIDERS: PCP Family Medicine; Visit Provider Internal Medicine Rheumatology | DX: L40.59 Other psoriatic arthropathy (principal); Z79.899 Other long term (current) drug therapy; L40.4 Guttate psoriasis; M17.10 Unilateral primary osteoarthritis, unspecified knee | CPT/HCPCS: 36415; 82565; 84520; 99214 ==

== ENCOUNTER → 2022-08-31 14:38 | Outpatient (BNVA) | payer MEDICARE, SELFPAY | PROVIDERS: PCP Family Medicine; Visit Provider Nurse Practitioner Family | DX: I25.10 Atherosclerotic heart disease of native coronary artery without angina pectoris (principal); N63.20 Unspecified lump in the left breast, unspecified quadrant; I10 Essential (primary) hypertension; Z87.891 Personal history of nicotine dependence; Z79.82 Long term (current) use of aspirin | CPT/HCPCS: 99214 ==

== ENCOUNTER 2022-09-14 08:49 | Outpatient (CLI) | payer MEDICARE, SELFPAY ==
--- NOTE | 2022-09-14 09:05 | MM_ITS ---
WS: [id number] DIAGNOSTIC BILATERAL DIGITAL BREAST TOMOSYNTHESIS MAMMOGRAPHY WITH CAD LEFT breast ultrasound, limited. HISTORY: Left breast mass COMPARISON: None available. TECHNIQUE: Bilateral craniocaudad, mediolateral oblique, and mediolateral views are submitted with to mosynthesis and SM. Spot LEFT MLO. Computer aided detection utilized. Breast composition: The breasts are almost entirely fatty. No mass or distortion is identified. No si gnificant gynecomastia. Palpable marker along the posterior chest wall, upper inner breast tissue. No underlying abnormality identified. LEFT breast ultrasound, limited. No abnormality is noted along the 11:00 axis in the palpable region. No soft tissue mass or thickenin g. MM/[place] [id number] IMPRESSION: BI-RADS: 1-Negative FOLLOW UP: See Report No mammographic or ultrasound abnormality LEFT breast. No additional imaging fo llow-up necessary.
--- NOTE | 2022-09-14 10:00 | US_ITS ---
WS: [id number] DIAGNOSTIC BILATERAL DIGITAL BREAST TOMOSYNTHESIS MAMMOGRAPHY WITH CAD LEFT breast ultrasound, limited. HISTORY: Left breast mass COMPARISON: None available. TECHNIQUE: Bilateral craniocaudad, mediolateral oblique, and mediolateral views are submitted with to mosynthesis and SM. Spot LEFT MLO. Computer aided detection utilized. Breast composition: The breasts are almost entirely fatty. No mass or distortion is identified. No si gnificant gynecomastia. Palpable marker along the posterior chest wall, upper inner breast tissue. No underlying abnormality identified. LEFT breast ultrasound, limited. No abnormality is noted along the 11:00 axis in the palpable region. No soft tissue mass or thickenin g. US/US breast LT limited* [id number] IMPRESSION: BI-RADS: 1-Negative FOLLOW UP: See Report No mammographic or ultrasound abnormality LEFT breast. No additional imaging fo llow-up necessary.
== END 2022-09-14 08:50 | disposition home or self-care (01) ==
PROVIDERS: PCP Family Medicine; Visit Provider Nurse Practitioner Family
DX: N63.25 Unspecified lump in the left breast, overlapping quadrants (principal)
CPT/HCPCS: 76642; 77062; G0279

== ENCOUNTER → 2022-11-16 12:10 | Outpatient (BNVA) | payer MEDICARE, SELFPAY | PROVIDERS: PCP Family Medicine; Visit Provider Internal Medicine Rheumatology | DX: L40.59 Other psoriatic arthropathy (principal); Z79.899 Other long term (current) drug therapy; L40.4 Guttate psoriasis; M17.10 Unilateral primary osteoarthritis, unspecified knee | CPT/HCPCS: 36415; 80076; 82565; 85025; 86140; 99214 ==

== ENCOUNTER → 2023-03-03 10:48 | Outpatient (BNVA) | payer MEDICARE, SELFPAY | PROVIDERS: PCP Family Medicine; Visit Provider Internal Medicine Cardiovascular Disease | DX: I25.10 Atherosclerotic heart disease of native coronary artery without angina pectoris (principal); I10 Essential (primary) hypertension; E78.5 Hyperlipidemia, unspecified; Z87.891 Personal history of nicotine dependence; I25.2 Old myocardial infarction; Z79.82 Long term (current) use of aspirin | CPT/HCPCS: 99214 ==

== ENCOUNTER → 2023-03-08 12:35 | Outpatient (BNVA) | payer MEDICARE, SELFPAY | PROVIDERS: PCP Family Medicine; Visit Provider Internal Medicine Rheumatology | DX: L40.59 Other psoriatic arthropathy (principal); L40.4 Guttate psoriasis; Z79.899 Other long term (current) drug therapy; M17.10 Unilateral primary osteoarthritis, unspecified knee | CPT/HCPCS: 99214 ==

== ENCOUNTER 2023-06-09 10:57 | Outpatient (CLI) | payer MEDICARE, SELFPAY ==
[2023-06-09 11:29] LABS: Basophils # 0.1 10^3/uL (0.0-0.1); Eosinophils # 0.1 10^3/uL (0.0-0.8); Hematocrit 42.1 % (37-53); Lymphocytes # 1.4 10^3/uL (0.8-4.8); Lymphocytes % 24.5 %; Mean Corpuscular HGB Conc 33.5 g/dL (30-55); Mean Corpuscular Hemoglobin 31.7 pg (27-33); Mean Corpuscular Volume 94.6 fl (82-101); Mean Platelet Volume 10.4 fL (7.4-10.4); Monocytes # 0.8 10^3/uL (0.2-0.9); Monocytes % 13.4 %; Neutrophils # 3.44 10^3/uL (1.8-7.7); Neutrophils % 59.8 %; Nucleated Red Blood Cells % 0 %; Platelet Count 192 10^3/cmm (157-399); Red Blood Count 4.45 10^6/uL (3.85-5.65); Red Cell Distribution Width 12.6 % (12.1-15.1); White Blood Count 5.76 10^3/uL (3.29-11.43)
[2023-06-09 11:51] LABS: Alanine Aminotransferase 17 U/L (0-41); Albumin Level 4.3 g/dL (3.5-5.2); Alkaline Phosphatase 103 U/L (40-130); Aspartate Amino Transferase 24 U/L (0-40); C Reactive Protein 5.1 mg/L (0.0-4.9); Globulin 2.6 g/dL (1.3-4.6); Total Bilirubin 0.7 mg/dL (0.15-1.2); Total Protein 6.9 g/dL (6.6-8.7)
== END 2023-06-09 10:58 | disposition home or self-care (01) ==
LOC: LAB 10:57
PROVIDERS: PCP Family Medicine; Visit Provider Internal Medicine Rheumatology
DX: L40.59 Other psoriatic arthropathy (principal); Z79.899 Other long term (current) drug therapy
CPT/HCPCS: 36415; 80076; 82565; 85025; 86140

== ENCOUNTER → 2023-12-11 12:34 | Outpatient (BNVA) | payer MEDICARE, SELFPAY | PROVIDERS: PCP Family Medicine; Visit Provider Internal Medicine Rheumatology | DX: L40.59 Other psoriatic arthropathy (principal); L40.4 Guttate psoriasis; M17.0 Bilateral primary osteoarthritis of knee; Z87.891 Personal history of nicotine dependence; Z79.899 Other long term (current) drug therapy; Z96.652 Presence of left artificial knee joint; Z71.85 Encounter for immunization safety counseling | CPT/HCPCS: 36415; 80076; 82565; 85025; 85651; 86140; 99214 ==

== ENCOUNTER → 2024-02-21 15:40 | Outpatient (BNVA) | payer MEDICARE, SELFPAY | PROVIDERS: PCP Family Medicine; Visit Provider Internal Medicine Cardiovascular Disease | DX: I25.10 Atherosclerotic heart disease of native coronary artery without angina pectoris (principal); I10 Essential (primary) hypertension; E78.5 Hyperlipidemia, unspecified; Z87.891 Personal history of nicotine dependence | CPT/HCPCS: 99214 ==

== ENCOUNTER → 2024-04-22 10:28 | Outpatient (BNVA) | payer MEDICARE, SELFPAY | PROVIDERS: PCP Family Medicine; Visit Provider Internal Medicine Rheumatology | DX: L40.59 Other psoriatic arthropathy (principal); L40.4 Guttate psoriasis; M17.0 Bilateral primary osteoarthritis of knee; N18.9 Chronic kidney disease, unspecified | CPT/HCPCS: 99214 ==

== ENCOUNTER 2024-05-22 10:34 | Outpatient (CLI) | payer MEDICARE, SELFPAY ==
[2024-05-22 11:03] LABS: Basophils # 0.1 10^3/uL (0.0-0.1); Basophils % 1.4 %; Eosinophils # 0.1 10^3/uL (0.0-0.8); Eosinophils % 2.4 %; Hematocrit 44.3 % (37-53); Lymphocytes # 1.6 10^3/uL (0.8-4.8); Lymphocytes % 32.9 %; Mean Corpuscular HGB Conc 33.6 g/dL (30-55); Mean Corpuscular Hemoglobin 31.8 pg (27-33); Mean Corpuscular Volume 94.7 fl (82-101); Monocytes # 0.6 10^3/uL (0.2-0.9); Monocytes % 12.8 %; Neutrophils # 2.48 10^3/uL (1.8-7.7); Neutrophils % 50.3 %; Nucleated Red Blood Cells % 0 %; Platelet Count 205 10^3/cmm (157-399); Red Blood Count 4.68 10^6/uL (3.85-5.65); Red Cell Distribution Width 12.7 % (12.1-15.1); White Blood Count 4.93 10^3/uL (3.29-11.43)
[2024-05-22 11:06] LABS: Erythrocyte Sedimentation Rate 3 mm/hr (0-10)
[2024-05-22 11:22] LABS: Alanine Aminotransferase 17 U/L (0-41); Albumin Level 4.3 g/dL (3.5-5.2); Alkaline Phosphatase 100 U/L (40-130); Aspartate Amino Transferase 22 U/L (0-40); C Reactive Protein 3.5 mg/L (0.0-4.9); Globulin 2.6 g/dL (1.3-4.6); Total Bilirubin 0.6 mg/dL (0.15-1.2); Total Protein 6.9 g/dL (6.6-8.7)
== END 2024-05-22 10:35 | disposition home or self-care (01) ==
LOC: LAB 10:36
PROVIDERS: PCP Family Medicine; Visit Provider Internal Medicine Rheumatology
DX: L40.59 Other psoriatic arthropathy (principal)
CPT/HCPCS: 36415; 80076; 82565; 85025; 85651; 86140

== ENCOUNTER → 2024-08-19 10:37 | Outpatient (BNVA) | payer MEDICARE, SELFPAY | PROVIDERS: PCP Family Medicine; Visit Provider Internal Medicine Rheumatology | DX: L40.59 Other psoriatic arthropathy (principal); L40.4 Guttate psoriasis; M17.10 Unilateral primary osteoarthritis, unspecified knee; Z79.899 Other long term (current) drug therapy | CPT/HCPCS: 36415; 80076; 82565; 85025; 85651; 86140; 99214 ==

== ENCOUNTER 2024-11-26 11:14 | Outpatient (CLI) | payer MEDICARE, SELFPAY ==
[2024-11-26 12:13] LABS: Basophils # 0.1 10^3/uL (0.0-0.1); Basophils % 1.1 %; Eosinophils # 0.3 10^3/uL (0.0-0.8); Eosinophils % 6.3 %; Hematocrit 40.8 % (37-53); Lymphocytes % 36.6 %; Mean Corpuscular HGB Conc 33.6 g/dL (30-55); Mean Corpuscular Hemoglobin 31.2 pg (27-33); Mean Corpuscular Volume 92.9 fl (82-101); Mean Platelet Volume 10.3 fL (7.4-10.4); Monocytes # 0.6 10^3/uL (0.2-0.9); Monocytes % 11.6 %; Nucleated Red Blood Cells % 0 %; Platelet Count 168 10^3/cmm (157-399); Red Blood Count 4.39 10^6/uL (3.85-5.65); Red Cell Distribution Width 12.6 % (12.1-15.1); White Blood Count 5.44 10^3/uL (3.29-11.43)
[2024-11-26 12:15] LABS: Erythrocyte Sedimentation Rate 2 mm/hr (0-10)
[2024-11-26 12:36] LABS: Alanine Aminotransferase 21 U/L (0-41); Albumin Level 4.1 g/dL (3.5-5.2); Alkaline Phosphatase 96 U/L (40-130); Aspartate Amino Transferase 25 U/L (0-40); Bilirubin Direct 0.13 mg/dL (0.00-0.30); Globulin 2.7 g/dL (1.3-4.6); Total Bilirubin 0.4 mg/dL (0.15-1.2); Total Protein 6.8 g/dL (6.6-8.7)
== END 2024-11-26 11:15 | disposition home or self-care (01) ==
PROVIDERS: PCP Family Medicine; Visit Provider Internal Medicine Rheumatology
DX: L40.59 Other psoriatic arthropathy (principal); Z79.899 Other long term (current) drug therapy
CPT/HCPCS: 36415; 80076; 82565; 85025; 85651; 86140

== ENCOUNTER → 2024-12-04 10:30 | Outpatient (BNVA) | payer MEDICARE, SELFPAY | PROVIDERS: PCP Family Medicine; Visit Provider Internal Medicine Rheumatology | DX: L40.59 Other psoriatic arthropathy (principal); L40.4 Guttate psoriasis; M17.10 Unilateral primary osteoarthritis, unspecified knee; Z79.899 Other long term (current) drug therapy | CPT/HCPCS: 86480; 86704; 86803; 87340; 99214 ==

== ENCOUNTER → 2025-02-12 16:49 | Outpatient (BNVA) | payer MEDICARE, SELFPAY | PROVIDERS: PCP Family Medicine; Visit Provider Internal Medicine Cardiovascular Disease | DX: R07.9 Chest pain, unspecified (principal); R00.1 Bradycardia, unspecified | CPT/HCPCS: 93005 ==

== ENCOUNTER → 2025-04-09 12:43 | Outpatient (BNVA) | payer MEDICARE, SELFPAY | PROVIDERS: PCP Family Medicine; Visit Provider Internal Medicine Rheumatology | DX: L40.59 Other psoriatic arthropathy (principal); L40.4 Guttate psoriasis; M17.11 Unilateral primary osteoarthritis, right knee; Z79.899 Other long term (current) drug therapy; N18.9 Chronic kidney disease, unspecified | CPT/HCPCS: 36415; 80076; 82306; 82565; 85025; 85651; 86140; 99214 ==